=== PATIENT | female | born 1975 | race American Indian/Alaskan Native ===

== ENCOUNTER 2019-01-17 13:02 | Emergency (ER) | payer BC, OTHER ==
[2019-01-17] MEDS ORDERED: IBUPROFEN 600 MG TAB PO ONE ×2 (13:19→13:20)
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
[2019-01-17 13:22] VITALS: BP 128/80
[2019-01-17] MEDS ORDERED: LIDOCAINE (1%) 10 MG/1 ML VIAL 20 ML MDV INFILTRATI ONE (16:55)
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
[2019-01-17] MEDS ORDERED: BACITRACIN/POLYMYXIN B OINT 28.35 GM TP ONE (18:16)
[2019-01-17] MEDS ORDERED: TETANUS,DIPH,PERTUSS(ACELL) VACCINE 0.5 ML SYRINGE IM ONE (18:29)
[2019-01-17] MEDS ORDERED: NEOMY 3.5 MG/BACIT 400 UNITS/POLY B 5000 UNITS/GM OINT PACKET TP ONE (18:29)
== END 2019-01-17 18:48 | disposition home or self-care (01) ==
LOC: ED 13:02
DX: S81.812A Laceration without foreign body, left lower leg, initial encounter (principal); Z90.710 Acquired absence of both cervix and uterus; Z98.890 Other specified postprocedural states; V49.49XA Driver injured in collision with other motor vehicles in traffic accident, initial encounter; Y93.89 Activity, other specified; Y92.410 Unspecified street and highway as the place of occurrence of the external cause; Y99.8 Other external cause status
CPT/HCPCS: 90471; 90715; A6250